=== PATIENT | male | born 1970 | race Caucasian/White ===

== ENCOUNTER 2018-02-18 08:22 | Emergency (ER) | payer OTHER ==
[~2018-02-18] VITALS: Ht 185.4 cm; Wt 88.5 kg
[~2018-02-18 08:22] MED LIST: XANAX0.5 M1 PO
[2018-02-18 08:27] VITALS: BP 123/81
--- NOTE | 2018-02-18 08:31 | ED PSYCHIATRIC COMPLAINT ---
History of Present Illness General Chief Complaint: ETOH/Drug Related Complaint Stated Complaint: REQUESTING HEROIN DETOX Source: patient Exam Limitations: no limitations Vital Signs & Intake/Output Vital Signs & Intake/Output Vital Signs Date Time Temp Pulse Resp B/P B/P Pulse O2 O2 Flow FiO2 Mean Ox Delivery Rate 02/18 0846 98 Room Air 02/19 0827 98.4 78 20 123/81 98 Room Air Allergies Coded Allergies: venom-honey bee (Severe, ANAPHYLAXIS 02/18/18) Reconcile Medications No Known Home Medications Triage Note: PT TO ED REQUESTING HEROIN DETOX. USES 3 BUNDLES A DAY. LAST USED LAST NIGHT. DENIES SI/HI. PT WITH H/O SAME, "I WAS CLEAN UNTIL I BROKE MY ANKLE AND WAS PRESCRIBED NARCOTICS". Triage Nurses Notes Reviewed? yes Onset: Abrupt HPI: 47-year-old male comes into the emergency room requesting her own. Patient has a history of substance abuse. He relapsed about a year and half ago. He uses heroin and cocaine intermittently. Denies any alcohol use. Denies drugs. Denies any suicidal or homicidal ideation. He was admitted to inpatient detox quite some time ago. (Cliff Smith) Past History Travel History Traveled to [place] past 21 day No Medical History Any Pertinent Medical History? see below for history Neurological: NONE EENT: NONE Cardiovascular: NONE Respiratory: NONE Gastrointestinal: NONE Hepatic: NONE Renal: NONE Musculoskeletal: NONE Psychiatric: depression Endocrine: NONE Blood Disorders: NONE Cancer(s): NONE INDEPENDENT TRADER/Reproductive: NONE History of MRSA: No History of VRE: No History of CDIFF: No Surgical History Surgical History: non-contributory Psychosocial History Who do you live with Other (see notes) What is your primary language Bur[place]ian Tobacco Use: Current Daily Use Daily Tobacco Use Amount/Type: => 5 Cigarettes daily ETOH Use: denies use Illicit Drug Use: cocaine, heroin Family History Hx Contributory? No (Cliff Smith) Review of Systems Review of Systems Constitutional: Reports: no symptoms. EENTM: Reports: no symptoms. Respiratory: Reports: no symptoms. Cardiovascular: Reports: no symptoms. GI: Reports: no symptoms. Genitourinary: Reports: no symptoms. Musculoskeletal: Reports: no symptoms. Skin: Reports: no symptoms. Neurological/Psychological: Reports: see HPI. Hematologic/Endocrine: Reports: no symptoms. Immunologic/Allergic: Reports: no symptoms. All Other Systems: Reviewed and Negative (Cliff Smith) Physical Exam Physical Exam General Appearance: well developed/nourished, no apparent distress, alert, awake Head: atraumatic Eyes: Bilateral: normal appearance, EOMI. Ears, Nose, Throat: normal ENT inspection, hearing grossly normal Neck: normal inspection Respiratory: no respiratory distress Cardiovascular: regular rate/rhythm Extremities: normal range of motion Neurological/Psychiatric: awake, alert Appearance/Memory/Insight: appropriate appearance, appropriate insight Behavoir/Eye Contact/Speech: cooperative Thoughts/Hallucinations: normal thought pattern, no apparent hallucination Skin: intact, normal color, warm/dry SAD PERSONS Done? patient not suicidal (Cliff Smith) Progress Differential Diagnosis: dementia, drug intoxication, drug overdose, drug withdrawal Plan of Care: 02/18/2018 9:08:48 AM I explained to the patient that insurance does not cover inpatient detox here at Hospital. [facility] was [facility]. Patient was given a number and spoke with them on the phone. He was also provided resources for further outpatient detox facilities. (Cliff Smith) Departure Departure Disposition: HOME OR SELF CARE Condition: Stable Clinical Impression Primary Impression: Opioid abuse Referrals: Kobe Ram MD (PCP/Family) Additional Instructions: The patient eloped from emergency room without any discharge instructions or any word at all. Departure Forms: Customer Survey General Discharge Information Prescriptions: Current Visit Scripts No Known Home Medications (Cliff Smith) PA/INTERACTIVE ART DIRECTOR Co-Sign Statement Statement: ED Attending supervision documentation- [] I saw and evaluated the patient. I have also reviewed all the pertinent lab results and diagnostic results. I agree with the findings and the plan of care as documented in the PA's/INTERACTIVE ART DIRECTOR's documentation. [X] I have reviewed the ED Record and agree with the PA's/INTERACTIVE ART DIRECTOR's documentation. [] Additions or exceptions (if any) to the PAs/INTERACTIVE ART DIRECTOR's note and plan are summarized below: [] (Raheel MACHADO,Kevyn Orozco)
== END 2018-02-18 09:43 ==
LOC: ERH 08:22
DX: F11.10 Opioid abuse, uncomplicated (principal)